=== PATIENT | female | born 1990 | race Caucasian/White ===

== ENCOUNTER 2017-03-22 09:50 | Emergency (ER) | payer SELFPAY ==
[~2017-03-22] VITALS: Ht 170.2 cm; Wt 88.0 kg
[~2017-03-22 09:50] MED LIST: AMOX500T PO; POLY10O LEFT EYE; Z.0.NO CURRENT MEDS
[2017-03-22 09:51] VITALS: BP 139/83; PULSE 81; RESP 14; TEMP 98.5; O2SAT 98
--- NOTE | 2017-03-22 11:20 | PD ---
HPI Chief Complaint: ENT Complaint Time Seen by Provider: 11:13 Travel History International Travel<30 days: No Contact w/Intl Traveler<30days: No Traveled to known affect area: No History of Present Illness HPI 26-year-old female presents to the emergency room for evaluation of cough and cold symptoms since yesterday. Patient reports nonproductive cough, sore throat , ear pressure, congestion, and chills. She has not taken anything for symptoms. Denies objective fever, nausea, vomiting, or body aches. No chronic medical conditions or daily medications. PFSH Past Medical History ?: Not LMP: 03/22/17 Social History Alcohol Use: No Tobacco Use: No Substance Use: No Allergies-Medications (Allergen,Severity, Reaction): Coded Allergies: No Known Allergies (Verified , 03/24/08) Reported Meds & Prescriptions Reported Meds & Active Scripts Active Polytrim Opth (Polymyxin/Trimethoprim Sulfate) 10 Ml Soln 1 Drop LEFT EYE Q4 7 Days Amoxil (Amoxicillin) 500 Mg Cap 500 Mg PO TID Reported No Current Meds (Miscellaneous Medication) Misc Review of Systems Except as stated in HPI: all other systems reviewed are Neg Physical Exam Narrative GENERAL: Well-nourished, well-developed female in no acute distress. Afebrile. Ambulatory. SKIN: Focused skin assessment warm/dry. HEAD: Normocephalic. EYES: No scleral icterus. No injection or drainage. EARS: Bilateral pinnae and external canals appear within normal limits. Bilateral tympanic membranes without erythema, dullness or perforation. ENT: Mucosa pink and moist. Mild erythema of the pharynx with scant exudates. No edema. No uvular edema. No uvular, palatal, or tonsillar deviation. Airway patent. Nasal turbinates appear normal without nasal blood, purulent drainage or septal hematoma. NECK: Supple, trachea midline. No JVD or lymphadenopathy. CARDIOVASCULAR: Regular rate and rhythm without murmurs, gallops, or rubs. RESPIRATORY: Breath sounds equal bilaterally. No accessory muscle use. No crackles, rales, wheezes, or rhonchi. Data Data Last Documented VS Vital Signs Date Time Temp Pulse Resp B/P (MAP) Pulse Ox O2 Delivery O2 Flow Rate FiO2 03/22/17 09:51 98.5 81 14 139/83 (101) 98 MDM Medical Decision Making Medical Screen Exam Complete: Yes Emergency Medical Condition: No Medical Record Reviewed: Yes Differential Diagnosis URI Narrative Course 26-year-old otherwise healthy female presents to the emergency room for evaluation of cold and cough symptoms since last night. Symptoms include cough , congestion, sore throat, ear pressure, and chills. Physical exam is reassuring. Vital signs stable. No erythema. Lungs sounds clear and equal bilaterally. Patient resting comfortably. No evidence of bacterial infection. This is URI. Patient told to follow up with PCP return for worsening symptoms. There are no urgent or emergent medical conditions at this time. A medical screening exam was performed: At the time of evaluation the presenting medical condition was determined not to be of an emergent nature. The patient was given the option of receiving additional care, but declined. Patient was given options for additional community resources from which to obtain care. The Patient Has Been advised to seek medical attention for their presenting complaint. The patient has been advised to return to the ER at any time if an emergent condition develops. Diagnosis Primary Impression: Encounter for medical screening examination Disposition: 01 DISCHARGE HOME Condition: Stable Kristi Rob Mar 22, 2017 11:20
== END 2017-03-22 11:32 | disposition left against medical advice (07) ==
LOC: NEPK 09:50
DX: R05 Cough (principal)
CPT/HCPCS: 99281

== ENCOUNTER 2017-05-20 17:39 | Emergency (ER) | payer SELFPAY ==
[~2017-05-20] VITALS: Ht 170.2 cm; Wt 88.5 kg
[2017-05-20 17:40] VITALS: BP 145/81; PULSE 81; RESP 14; TEMP 97.7; O2SAT 95
[2017-05-20] MEDS ORDERED: PRED-503 PO (18:11)
--- NOTE | 2017-05-20 18:15 | PD ---
HPI Chief Complaint: Skin Problem Time Seen by Provider: 18:05 Travel History International Travel<30 days: No Contact w/Intl Traveler<30days: No Traveled to known affect area: No History of Present Illness HPI 26-year-old white female presents to emergency Department with complaints of a pruritic rash which started approximately a week ago around her ears now has progressively included her face, upper extremities, trunk and a few scattered lesions on her legs. She denies any new exposures. No new chemicals or skin care products. Patient denies any earache, sore throat, cough, congestion, shortness of breath or wheezing. No glossal edema. She does state that she feels warm at times. PFSH Past Medical History Medical History: Denies Significant Hx Diminished Hearing: No Tetanus Vaccination: < 5 Years Influenza Vaccination: Yes ?: Unknown LMP: 04/18/17 Past Surgical History Surgical History: No Previous Surgery Social History Alcohol Use: No Tobacco Use: No Substance Use: No Allergies-Medications (Allergen,Severity, Reaction): Coded Allergies: No Known Allergies (Verified Adverse Reaction, Unknown, 05/20/17) Reported Meds & Prescriptions Reported Meds & Active Scripts Active Deltasone (Prednisone) 20 Mg Tab 20 Mg PO BID 7 Days Review of Systems Except as stated in HPI: all other systems reviewed are Neg Physical Exam Narrative GENERAL: Well-nourished, well-developed patient. SKIN: Focused skin assessment warm/dry. Patient has multiple raise macular lesions and some plaques of erythema. No pustules or vesicles. The worse on the face, upper trunk and chest as well as her extremity is. HEAD: Normocephalic. Oral cavity is clear. EYES: No scleral icterus. No injection or drainage. NECK: Supple, trachea midline. No JVD or lymphadenopathy. CARDIOVASCULAR: Regular rate and rhythm without murmurs, gallops, or rubs. RESPIRATORY: Breath sounds equal bilaterally. No accessory muscle use. GASTROINTESTINAL: Abdomen soft, non-tender, nondistended. MUSCULOSKELETAL: No cyanosis, or edema. BACK: Nontender without obvious deformity. No CVA tenderness. Data Data Last Documented VS Vital Signs Date Time Temp Pulse Resp B/P (MAP) Pulse Ox O2 Delivery O2 Flow Rate FiO2 05/20/17 17:40 97.7 81 14 145/81 (102) 95 Orders Orders Ed Discharge Order (05/20/17 18:09) [facility] Medical Decision Making Medical Screen Exam Complete: Yes Emergency Medical Condition: Yes Medical Record Reviewed: Yes Differential Diagnosis MDM: High Differential diagnoses: Abscess, folliculitis, cellulitis, lymphangitis, abrasion, contact dermatitis Narrative Course This is contact dermatitis Diagnosis Primary Impression: Contact dermatitis Qualified Codes: L25.9 - Unspecified contact dermatitis, unspecified cause Referrals: [facility] 1 week Patient Instructions: General Instructions Additional Instructions: Rest. Dove soap. Prednisone. Aveeno bath 50 g of Benadryl every 4 hours as needed for itching and redness. Follow-up with the [facility] in one week. Return to the ER for emergencies. Med/Other Pt SpecificInfo: Prescription(s) given Scripts Prednisone (Deltasone) 20 Mg Tab 20 MG PO BID for 7 Days, #14 TAB 0 Refills Prov: David Benitez MD 05/20/17 Disposition: 01 DISCHARGE HOME Condition: Stable Flex Jacobson May 20, 2017 18:15
== END 2017-05-20 18:27 | disposition home or self-care (01) ==
LOC: NEPD 17:39
DX: L25.9 Unspecified contact dermatitis, unspecified cause (principal)
CPT/HCPCS: 99283